=== PATIENT | female | born 1980 | race Caucasian/White ===

== ENCOUNTER → 2017-11-23 | Outpatient (CLI) | payer BC ==
[~2017-11-23] MED LIST: ALBUAER19 INH; BUPR-79 PO; IBUP-103 PO
[2017-11-23 12:39] LABS: BLOOD UREA NITROGEN 12 mg/dl (7-18); CALCIUM 8.9 mg/dl (8.5-10.1); CARBON DIOXIDE 26 mmol/L (21-32); CHOLESTEROL 220 mg/dl (0-200); CREATININE 0.92 mg/dl (0.60-1.20); GLUCOSE,FASTING 92 mg/dl (70-99); POTASSIUM 4.3 mmol/L (3.5-5.1); SODIUM 141 mmol/L (136-145)
[2017-11-23 12:49] LABS: LDL CHOLESTEROL CALCULATED 139 mg/dl
== END | disposition home or self-care (01) ==
LOC: C.LABPBG 10:17
PROVIDERS: ATTEND Family Medicine
DX: Z00.00 Encounter for general adult medical examination without abnormal findings (principal); R63.5 Abnormal weight gain

== ENCOUNTER 2018-12-29 05:58 | Observation (INO) ==
--- NOTE | 2018-12-26 10:50 | Anesthesiology Consultation ---
Date of Service December 26, 2018 Assessment & Plan (1) Encounter for pre-operative examination: Plan: - Check test AM DOS Chart Review Chart Review: Acceptable Risk for Surgery and Patient NOT seen in Pre Admission Testing History Surgery Operation Date: 12/29/18 07:45 Proposed Procedures p L5-S1 Laminectomy - Carlos Mccoy DO Height/Weight Height: 5 ft 4 in Weight: 90.718 kg Allergies Allergy/AdvReac Type Severity Reaction Status Date / Time amoxicillin Allergy Unknown HIVES, Verified 12/23/18 15:33 CHEST TIGHTNESS CAT ALLERGY Allergy Unknown DYSPNEA Uncoded 12/26/18 10:52 ENVIRONMENTAL ALLERGIES Allergy Unknown Uncoded 12/23/18 15:49 Medications Home Medications Medication Instructions Recorded Confirmed Last Taken albuterol sulfate 1 puff INHALATION Q6H PRN 12/23/18 12/23/18 Unknown baclofen 10 mg PO UD PRN 12/23/18 12/23/18 Unknown ibuprofen 600 mg PO UD PRN 12/23/18 12/23/18 Unknown Past Medical History Medical History Asthma Herniated disc REASON FOR SURGERY Obesity Past Family History Family History Father No problems noted. Grandfather Family history of lung cancer Mother Family history of breast cancer Past Surgical History Surgical History History of arthroscopy of right shoulder History of section X4 History of eye surgery LASIK EYE History of laparoscopic cholecystectomy History of right oophorectomy Nausea and vomiting after administration of anesthetic agent AFTER C/S Social History Smoking Status: Never smoker Do You Dip or Chew Tobacco: No Hx Alcohol Use: No Hx Substance Use: No substance use type: does not use Testing Electrocardiogram Date: 12/23/18 Findings: + NSR @ (73) Chest X-Ray Date: 12/23/18 Findings: + NAD Laboratory Results 12/23/18 WBC 8.74 H/H 14.0/41.8 PLATELETS 271 SODIUM 138 POTASSIUM 4.0 CHLORIDE 109 CO2 23 BUN 19 CREATININE 1.06 GLUCOSE 95 UA negative bacteria
[2018-12-29] MEDS ORDERED: ACETAMINOPHEN 500 MG TAB PO SCH (06:00)
[2018-12-29] MEDS ORDERED: GABAPENTIN 300 MG x 3 PO SCH (06:00)
[2018-12-29] MEDS ORDERED: LR 15ML/HR IV SCH (06:00)
[2018-12-29] MEDS ORDERED: CeleBREX 200 MG CAP PO SCH (06:00)
[2018-12-29] MEDS ORDERED: VANCOMYCIN HCL 1,500 MG in SODIUM CHLORIDE 0.9% 500 ML IV SCH (06:00)
[2018-12-29] MEDS ORDERED: fentaNYL citrate 100 MCG/2 ML VIAL ONE ×5 (06:35→08:43)
[2018-12-29] MEDS ORDERED: HYDROmorphone INJ 2 MG/ML SYR/VIAL ONE (06:35)
[2018-12-29] MEDS ORDERED: MIDAZOLAM HCL 1 MG/ML 2ML VIAL ONE (06:35)
[2018-12-29] MEDS ORDERED: PROPOFOL IV EMULSION 10 MG/ML 20 ML VIAL IV ONE ×2 (06:37→08:26)
[2018-12-29] MEDS ORDERED: GLYCOPYRROLATE 0.2 MG/ML VIAL ONE (06:37)
[2018-12-29] MEDS ORDERED: ROCURONIUM BROMIDE 10 MG/ML 5 ML VIAL ONE (06:37)
[2018-12-29] MEDS ORDERED: ONDANSETRON INJ 2 MG/ML 2 ML VIAL ONE ×2 (06:37→08:22)
[2018-12-29] MEDS ORDERED: LIDOCAINE HCL 2% 2 ML VIAL/AMP(20MG/ML) INFIL ONE (06:37)
[2018-12-29] MEDS ORDERED: DEXAMETHASONE SOD INJ 4 MG/ML VIAL ONE (06:37)
[2018-12-29] MEDS ORDERED: NEOSTIGMINE METHYLSULFATE 1 MG/ML 10ML VIAL ONE (06:37)
[2018-12-29] MEDS ORDERED: SCOPOLAMINE 1.5 MG TDSY ONE (07:01)
[2018-12-29] MEDS ORDERED: SCOPOLAMINE 1.5 MG TDSY TD SCH (07:15)
--- NOTE | 2018-12-29 07:31 | History & Physical Bridge Note ---
Date of Service December 29, 2018 History & Physical Bridge Note I have examined the patient, reviewed the History & Physical and in the interval since the performance of the History & Physical I have noted the following changes of clinical significance: no changes noted
--- NOTE | 2018-12-29 07:32 | History & Physical Report ---
Date of Service December 29, 2018 Assessment & Plan (1) Lumbar disc herniation with radiculopathy: L5-S1 laminectomy on the left Present on Admission?: Yes History of Present Illness Chief Complaint: Back and leg pain Primary Care Provider: NO PCP This is a 38-year-old female with worsening back and left leg pain. After failing extensive course of nonoperative care is here for surgical intervention. Allergies Allergy/AdvReac Type Severity Reaction Status Date / Time amoxicillin Allergy Unknown HIVES, Verified 12/23/18 15:33 CHEST TIGHTNESS CAT ALLERGY Allergy Unknown DYSPNEA Uncoded 12/26/18 10:52 ENVIRONMENTAL ALLERGIES Allergy Unknown Uncoded 12/23/18 15:49 Home Medications Home Medications Medication Instructions Recorded Confirmed Type albuterol sulfate 1 puff INHALATION Q6H PRN 12/23/18 12/29/18 History baclofen 10 mg PO UD PRN 12/23/18 12/29/18 History ibuprofen 600 mg PO UD PRN 12/23/18 12/29/18 History Past Med/Surg History Family History Father No problems noted. Grandfather Family history of lung cancer Mother Family history of breast cancer Social History Current Living Situation: Family Other Information That Helps Us Care for You: No Feels Safe at Home: Yes Smoking Status: Never smoker Do You Dip or Chew Tobacco: No Hx Alcohol Use: No Hx Substance Use: No Beliefs That Will Affect Care: None Preferred Language: [place] Communication Ability: Effective Canvass Manager Required: No Physical Exam 2 Vital Signs (Past 24 Hours): Last Vital Signs Temp 36.7 C 12/29/18 06:44 Pulse 75 12/29/18 06:44 Resp 20 12/29/18 06:44 BP 118/68 12/29/18 06:44 Pulse Ox 98 12/29/18 06:44 Results & Data Medications Administered Acetaminophen (Tylenol) 1,000 mg PO PREOP ELYSSA Stop: 12/29/18 18:00 Last Admin: 12/29/18 06:55 Dose: 1,000 mg Celecoxib (Celebrex) 200 mg PO PREOP ELYSSA Stop: 12/29/18 18:00 Last Admin: 12/29/18 06:55 Dose: 200 mg Gabapentin (Neurontin) 900 mg PO PREOP ELYSSA Stop: 12/29/18 18:00 Last Admin: 12/29/18 06:55 Dose: 900 mg Lactated Ringer's (Lr) 1,000 mls @ 15 mls/hr IV .Q24H ELYSSA Stop: 12/30/18 05:59 Last Admin: 12/29/18 06:42 Dose: 15 mls/hr Vancomycin HCl 1,500 mg/ (Sodium Chloride) 530 mls @ 200 mls/hr IV PREOP ELYSSA Stop: 12/29/18 08:38 Last Admin: 12/29/18 06:42 Dose: 200 mls/hr Scopolamine (Transderm-Scop) 1.5 mg TD Q72H ELYSSA Stop: 01/28/19 07:14 Last Admin: 12/29/18 07:04 Dose: 1.5 mg
[2018-12-29] MEDS ORDERED: BUPIVACAINE/EPINEPHRINE 0.5% MPF 1:200,000 30 ML VIAL ONE (07:41)
[2018-12-29] MEDS ORDERED: BACITRACIN INJ 50,000 UNIT VIAL ONE (07:41)
[2018-12-29] MEDS ORDERED: CHECK SCOPOLAMINE PATCH PLACEMENT SCH (08:00)
[2018-12-29] MEDS ORDERED: FLOSEAL HEMOSTATIC MATRIX 5ML TOP ONE (08:06)
[2018-12-29] MEDS ORDERED: KETOROLAC 30 MG/ML VIAL ONE (08:22)
[2018-12-29] MEDS ORDERED: LARYING-O-JET KIT (LTA) ONE (08:22)
[2018-12-29] MEDS ORDERED: METOCLOPRAMIDE HCL INJ 5 MG/ML 2 ML VIAL ONE (08:22)
[2018-12-29] MEDS ORDERED: raNITIdine HCl 25 MG/ML VIAL ONE (08:22)
--- NOTE | 2018-12-29 08:48 | Operative Report ---
Post Operative Report Pre & Post Diagnosis Operation Date: 12/29/18 07:45 Pre-Op Diagnosis: Herniated was pulposis L5-S1 the left Post-Op Diagnosis: Same Procedure Operation Date: 12/29/18 07:45 Actual Procedures Lumbar laminotomy L5-S1 left with excision of herniated free fragment Surgeon Carlos Mccoy, Medical Record Librarian None Estimated Blood Loss 10 Findings Consistent with Post-Op Diagnosis Specimens None Description of Procedure Patient was met with preoperatively case discussed all questions addressed. After informed consent obtained patient was taken to the operative suite underwent intubation and placed in the prone position on the Isael table on top of the Hira frame. All bony prominences well-padded eyes inspected to ensure no external pressure placed upon the peer at this point the lumbar spine was prepped and draped in a sterile fashion. With the assistance of fluoroscopy identified the 5 1 to space and a small midline incision was created overlying this region. Sharp dissection with the assistance of Bovie cautery was performed down to expose the interlaminar space at L5-S1 left. Self -retaining retractors placed. Then created a small laminotomy excising the lateral portion of the ligamentum flavum to expose a markedly compress traversing S1 nerve root. It was mobilized medially and several large fragments of free disc material identified and removed creating significant decompression of the root. There was explored several times to ensure all loose fragments addressed. Was then copious irrigated and closed with 1 Vicryl in the fascia 2-0 Vicryl subcutaneously and 4-0 Monocryl for final skin closure Steri-Strip sterile dressings placed. Patient will continue to PACU stable condition. I attest to the content of the Intraoperative Record and any orders documented therein. Any exceptions are noted below.
--- NOTE | 2018-12-29 09:41 | Fluoroscopy Report ---
FL spine 1V any level CLINICAL HISTORY: 38 years-old Female presenting with L5-S1 LAMI. TECHNIQUE: 1 fluoroscopic image(s) recorded as part of an intraoperative procedure. COMPARISON: None. FINDINGS/IMPRESSION: Surgical instrumentation projects over the L5-S1 level. Please see surgical report for further details. Fluoroscopy dosage (mGy): 3.54. Fluoroscopy time: 4.2 seconds. Number or time of fluoroscopic spot images: 0. Electronically signed by: Syed Meyer M.D. 12/29/2018 9:40 AM
--- NOTE | 2018-12-29 10:13 | Anesthesiology Progress Note ---
Date of Service December 29, 2018 Anesthesia Post Procedure Vital Signs Vital Signs: Temp Pulse Pulse Pulse Resp BP BP 12/29/18 10:00 56 L 12 114/68 12/29/18 09:55 67 20 118/70 12/29/18 09:50 55 L 16 116/69 12/29/18 09:45 57 L 15 116/67 12/29/18 09:40 53 L 16 111/68 12/29/18 09:35 58 L 14 12/29/18 09:30 59 L 13 116/67 12/29/18 09:25 58 L 17 115/67 12/29/18 09:20 72 20 120/72 12/29/18 09:15 69 15 117/67 12/29/18 09:10 74 13 123/66 12/29/18 09:08 70 13 12/29/18 09:07 71 14 117/65 12/29/18 09:06 97.7 F 74 10 L 117/68 12/29/18 06:44 98.1 F 75 20 118/68 Pulse Ox 12/29/18 10:00 100 12/29/18 09:55 100 12/29/18 09:50 100 12/29/18 09:45 100 12/29/18 09:40 100 12/29/18 09:35 100 12/29/18 09:30 100 12/29/18 09:25 100 12/29/18 09:20 100 12/29/18 09:15 100 12/29/18 09:10 100 12/29/18 09:08 100 12/29/18 09:07 100 12/29/18 09:06 99 12/29/18 06:44 98 Pain Intensity Left Lower Leg: Pain Intensity: 6 Notes Mental Status: alert / awake / arousable and participated in evaluation Patient Amnestic to Procedure: Yes Nausea / Vomiting: adequately controlled Pain: adequately controlled Airway Patency, RR, SpO2: stable & adequate BP & HR: stable & adequate Hydration State: stable & adequate Anesthetic Complications: no major complications apparent and Pt Satisfied with anesthetic care
[2018-12-29] MEDS ORDERED: ePHEDrine sulfate 50 MG/ML AMP IV PRN (10:55)
[2018-12-29] MEDS ORDERED: ATROPINE SULFATE 0.1 MG/ML 10ML SYR IV PRN (10:55)
[2018-12-29] MEDS ORDERED: fentaNYL citrate 100 MCG/2 ML VIAL IV PRN (10:55)
[2018-12-29] MEDS ORDERED: HYDROmorphone INJ 1 MG/ML SYRINGE IV PRN (11:17)
[2018-12-29] MEDS ORDERED: DO NOT ADMINISTER FLU VACCINE PRN (11:17)
[2018-12-29] MEDS ORDERED: LORazepam 1 MG/2 ML VIAL IV PRN (11:17)
[2018-12-29] MEDS ORDERED: MAGNESIUM HYDROXIDE SUSP 30 ML UDC PO PRN (11:17)
[2018-12-29] MEDS ORDERED: ACETAMINOPHEN 325 MG TAB PO PRN (11:17)
[2018-12-29] MEDS ORDERED: DO NOT ADMINISTER PNEUMOCOCCAL VACCINE PRN (11:17)
[2018-12-29] MEDS ORDERED: LORazepam 1 MG TAB PO PRN (11:17)
[2018-12-29] MEDS ORDERED: ONDANSETRON INJ 2 MG/ML 2 ML VIAL IV PRN (11:17)
[2018-12-29] MEDS ORDERED: ALBUTEROL HFA 8 GM INHALER INH PRN (11:17)
[2018-12-29] MEDS: DOCUSATE SODIUM 100 MG CAP PO SCH ×2 (12:02→20:52)
[2018-12-29] MEDS: LACTATED RINGER'S 1,000 ML IV SCH (12:02)
[2018-12-29] MEDS: KETOROLAC 30 MG/ML VIAL IV PRN (16:24)
[2018-12-30] MEDS: LACTATED RINGER'S 1,000 ML IV SCH (00:02)
[2018-12-30] MEDS: KETOROLAC 30 MG/ML VIAL IV PRN (04:11)
--- NOTE | 2018-12-30 08:43 | Anesthesiology Progress Note ---
Date of Service December 30, 2018 Anesthesia Post Procedure Vital Signs Vital Signs: Temp Pulse Pulse Pulse Resp BP BP 12/30/18 07:08 37.4 C 65 16 109/70 12/30/18 03:27 36.6 C 71 16 12/30/18 01:56 65 12/29/18 23:11 37.1 C 57 L 16 12/29/18 19:31 37.6 C H 68 18 12/29/18 15:55 37.6 C H 66 18 12/29/18 14:34 65 18 12/29/18 13:14 89 18 12/29/18 11:55 67 18 12/29/18 11:33 36.3 C L 59 L 16 12/29/18 11:04 36.7 C 67 16 12/29/18 10:35 66 22 12/29/18 10:30 57 L 15 121/70 12/29/18 10:25 60 14 118/72 12/29/18 10:20 60 17 115/71 12/29/18 10:15 58 L 12 116/72 12/29/18 10:11 68 18 100/70 12/29/18 10:10 57 L 10 L 12/29/18 10:05 53 L 19 113/69 12/29/18 10:00 56 L 12 114/68 12/29/18 09:55 67 20 118/70 12/29/18 09:50 55 L 16 116/69 12/29/18 09:45 57 L 15 116/67 12/29/18 09:40 53 L 16 111/68 12/29/18 09:35 58 L 14 12/29/18 09:30 59 L 13 116/67 12/29/18 09:25 58 L 17 115/67 12/29/18 09:20 72 20 120/72 12/29/18 09:15 69 15 117/67 12/29/18 09:10 74 13 123/66 12/29/18 09:08 70 13 12/29/18 09:07 71 14 117/65 12/29/18 09:06 36.5 C 74 10 L BP Pulse Ox 12/30/18 07:08 109/70 97 12/30/18 03:27 98/61 L 98 12/30/18 01:56 12/29/18 23:11 94/60 L 96 12/29/18 19:31 97/59 L 95 12/29/18 15:55 96/63 L 96 12/29/18 14:34 118/74 98 12/29/18 13:14 111/74 97 12/29/18 11:55 110/74 96 12/29/18 11:33 117/77 99 12/29/18 11:04 115/74 98 12/29/18 10:35 100 12/29/18 10:30 100 12/29/18 10:25 100 12/29/18 10:20 100 12/29/18 10:15 100 12/29/18 10:11 100 12/29/18 10:10 100 12/29/18 10:05 100 12/29/18 10:00 100 12/29/18 09:55 100 12/29/18 09:50 100 12/29/18 09:45 100 12/29/18 09:40 100 12/29/18 09:35 100 12/29/18 09:30 100 12/29/18 09:25 100 12/29/18 09:20 100 12/29/18 09:15 100 12/29/18 09:10 100 12/29/18 09:08 100 12/29/18 09:07 100 12/29/18 09:06 117/68 99 Pain Intensity Left Lower Leg: Pain Intensity: 0 Notes Mental Status: alert / awake / arousable and participated in evaluation Patient Amnestic to Procedure: Yes Nausea / Vomiting: adequately controlled Pain: adequately controlled Airway Patency, RR, SpO2: stable & adequate BP & HR: stable & adequate Hydration State: stable & adequate Anesthetic Complications: no major complications apparent and Pt Satisfied with anesthetic care
[2018-12-30] MEDS: DOCUSATE SODIUM 100 MG CAP PO SCH (09:07)
--- NOTE | 2018-12-30 10:06 | Discharge Summary ---
Date of Service December 30, 2018 Admission HPI Per Admitting Provider This is a 38-year-old female with worsening back and left leg pain. After failing extensive course of nonoperative care is here for surgical intervention. Principal Diagnosis Lumbar disc herniation with radiculopathy Discharge Data Allergies Allergy/AdvReac Type Severity Reaction Status Date / Time amoxicillin Allergy Unknown HIVES, Verified 12/23/18 15:33 CHEST TIGHTNESS CAT ALLERGY Allergy Unknown DYSPNEA Uncoded 12/26/18 10:52 ENVIRONMENTAL ALLERGIES Allergy Unknown Uncoded 12/23/18 15:49 Procedures Performed Operation Date: 12/29/18 07:45 Actual Procedures p L5-S1 Laminectomy - Carlos Mccoy DO Ordered Studies 12/29/18 07:45 FL fluoroscopy <1hr Routine FL spine 1V any level Routine Hospital Course (1) Lumbar disc herniation with radiculopathy: Patient underwent lumbar laminotomy partial discectomy tolerated as well as taken to orthopedic floor postoperative. Next day her pain is well controlled. She is only taking Tylenol and ibuprofen. Leg symptoms improved. Subsequently discharged home. Discharge orders and instructions found in the chart for further review. Total Time Total Time Spent Total Time Spent (In Minutes): Not applicable Discharge Plan Discharge Items Patient Disposition: Home - Self-Care Reason For Visit: Other Intervertebral Disc Displacement, Lumbar Reg Discharge Diagnosis: Lumbar disc herniation Discharge Goals: Decrease discomfort Activity: Per 'Additional Instructions' section Non-emergency contact: Primary Care Provider Call non-emergency contact if: you have any medication questions Follow-up/Referrals: PCP,NO [Primary Care Provider] - Diet: Regular Addtl Provider Instructions: ACTIVITY RECOMMENDATIONS: SELF CARE INSTRUCTIONS AFTER A LAMINECTOMY 1. No prolonged sitting (less than 30 minutes for the first 3 weeks after surgery). 2. No bending, lifting more than 5 pounds, or twisting (roll like a log when turning in bed). 3. You may shower 3 days after surgery if no drainage from wound. Thoroughly dry wound. Do not soak in the tub. 4. Please walk as much as you can for exercise. Gradually increase the distance that you walk as your endurance increases. 5. You may drive in 7-10 days if you are comfortable and no longer requiring pain medications. SPECIAL CARE INSTRUCTIONS: VERY IMPORTANT TO READ AND REVIEW A. Your surgical incision has been closed with a cosmetic suture under the skin that will dissolve in about 6 weeks. In 14 days, you can use a pair of clean scissors and cut the suture that is left outside of the skin at the ends of your incision. B. Complications are uncommon, but please contact us if you have any signs or symptoms of: 1. wound infection (fever higher than 102.5 degrees F, redness, separation of wound, drainage, or increasing pain from the incision) 2. blood clots in legs (pain, swelling, redness and warmth in legs) 3. urinary tract infection (fever higher than 102.5 degrees, burning upon urination or increased frequency of urination) 4. nerve problems (inability to walk on your toes or heels, numbness, loss of bowel or bladder control) 5. any other symptoms that concern you. C. Please call the office at if you have any concerns or questions about your operation or recovery. MANAGING PAIN AFTER SPINAL SURGERY 1. Narcotic medication is intended for short-term use and will be provided for surgical pain. Surgical pain usually lasts for a period of 4-6 weeks. Narcotic medication includes Percocet, Vicodin, Darvocet, Tylenol #3 or Lortab. 2. Longer-term pain is more appropriately treated with non-narcotic medication such as Tylenol ES. 3. Muscle spasm is not appropriately treated with narcotics. Muscle relaxers such as Soma, Flexeril or Skelaxin can be used along with Tylenol ES. 4. Remember that we all live with some "aches and pains". This is not unusual or uncommon after an injury or as we get older. 5. We will provide appropriate medication within the normal guidelines of their prescribed use. We will also be very cautious and aware of potential abuse and extended duration of patients' medication needs. 6. Please allow 2-3 days to process refills. Prescriptions will not be mailed but must be picked up at the office. FOLLOW UP VISIT: Keep your scheduled follow-up appointment. Any questions, please call the office at . Prescriptions: Continue baclofen 10 mg Tablet 10 mg PO UD PRN (Reason: Muscle Spasm) RF: 0 ibuprofen 600 mg Tablet 600 mg PO UD PRN (Reason: Pain) RF: 0 albuterol sulfate 90 mcg/actuation Hfa Aerosol Inhaler 1 puff INHALATION Q6H PRN (Reason: CAT ALLERGY) RF: 0 Stand-Alone Forms: [facility], [facility] Discharge Orders: Discharge Order (Routine); Ordered 12/30/18 Ordered By: Carlos Mccoy Admission Data Admit Date/Time: 12/29/18 11:06 Attending Provider: Carlos Mccoy Admit Provider: Carlos Mccoy Primary Care Provider: PCP,NO Service: Surgical Services Other Interventions: Discharge Summary Assessment (RN) Last Done: 12/30/18 09:48
[2018-12-31] MEDS ORDERED: BISACODYL 5 MG TABEC PO PRN (06:00)
[2018-12-31] MEDS ORDERED: POLYETHYLENE (MIRALAX) 17 GM PACK PO SCH (08:49)
== END 2018-12-30 10:44 | disposition home or self-care (01) | DRG 517 ==
LOC: ASU 05:58 → INTOOBSV 11:06 → 3E 11:06

== ENCOUNTER 2019-01-04 08:36 | Inpatient (IN) ==
[2019-01-04] MEDS ORDERED: ACETAMINOPHEN 500 MG TAB PO STA (10:08)
[2019-01-04] MEDS ORDERED: KETOROLAC TROMETHAMINE 60 MG/2 ML VIAL IM STA (10:08)
[2019-01-04] MEDS ORDERED: DEXAMETHASONE **PF** INJ 10 MG/ML VIAL IM ONE (10:08)
[2019-01-04] MEDS ORDERED: OXYCODONE HCL IR 5 MG TAB (IMMEDIATE RELEASE) PO STA (10:08)
[2019-01-04] MEDS ORDERED: SODIUM CHLORIDE 0.9% 1000ML 1,000 ML IV ONE (10:19)
[2019-01-04] MEDS ORDERED: GADOBUTROL 65ML VIAL IV PRN (11:43)
--- NOTE | 2019-01-04 14:04 | Magnetic Resonance Report ---
MR lumbar spine wo/w con CLINICAL HISTORY: 38 years-old Female with acute lumbar pain POD 6 laminectomy. Acute low back pain with prior lumbar spine surgery. Patient reports prior laminectomy 6 days prior. COMPARISON: Fluoroscopic images of the lumbar spine 12/29/2018 TECHNIQUE: Multiplanar, multi sequence MRI of the lumbar spine was performed both with and without th e use of 9 mL Gadavist FINDINGS: Job Honer localizer images demonstrate no gross abnormality of the abdomen, pelvis or paraspinal structur es. T2 hyperintense 2.7 cm structure of the left adnexum is suggestive of an ovarian follicle. No aor tic aneurysm or adenopathy. No acute fracture or subluxation. Conus medullaris terminates at L1. Sign al within the thoracic spinal cord appears unremarkable. T12-L1: No central canal or neural foraminal stenosis. L1-L2: No central canal or neural foraminal stenosis. L2-L3: Small central disc protrusion flattens the ventral thecal sac. No significant central canal o r foraminal narrowing. L3-L4: Mild disc desiccation with small circumferential annular disc bulge, central annular fissure with small disc protrusion. Additionally, there is mild facet arthrosis with ligamentum flavum thicke christal. Flattening of the ventral thecal sac without significant central canal stenosis. There is mild inferior left foraminal stenosis. The right foramen is patent. L4-L5: Mild disc desiccation with mild intervertebral disc space narrowing. Small circumferential an nular disc bulge with central annular fissure. No significant central canal or foraminal narrowing. L5-S1: Mild intervertebral disc space narrowing with disc desiccation. Small circumferential annular disc bulge with central/left paracentral disc protrusion flattening the ventral thecal sac. Mild lef t foraminal stenosis. The right foramen appears generally patent. Postoperative changes from recent left hemilaminectomy at S1. Peripheral enhancement about a 2.3 x 1. 9 x 1.6 cm fluid collection within this distribution is noted. Moderate edema within the subcutaneous and deep tissues with micrometallic artifact, likely postsurgical. There is moderate enlargement, ed josef and enhancement about the left S1 nerve root, partially imaged on image 30 series 7. Additionally , there is mass effect and rightward displacement of the thecal sac at this level secondary to the af orementioned findings. Moderate central canal stenosis. Additionally, there is enhancement involving multiple cauda equina nerve roots. IMPRESSION: 1. Postoperative changes from recent left hemilaminectomy at S1. Peripherally enhancing fluid collect ion at the operative bed measures up to 2.3 cm. Postoperative seroma is favored with abscess also wit hin the differential. There is resultant moderate central canal stenosis at this interspace. 2. Moderate enlargement with edema and enhancement of the left S1 nerve root, suggestive of an associ ated infectious or inflammatory neuritis. 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 3. No large epidural fluid collection. 4. Discogenic degenerative changes at L3-L4, L4-L5 and L5-S1 as above. The above report was generated using voice recognition software. It may contain grammatical, syntax o r spelling errors. Electronically signed by: Kayden James M.D. 01/04/2019 2:03 PM
[2019-01-04] MEDS ORDERED: ONDANSETRON INJ 2 MG/ML 2 ML VIAL IV PRN (15:11)
[2019-01-04] MEDS ORDERED: LORazepam 1 MG TAB PO PRN (15:11)
[2019-01-04] MEDS ORDERED: HYDROmorphone INJ 1 MG/ML SYRINGE IV PRN (15:16)
[2019-01-04] MEDS ORDERED: ACETAMINOPHEN 500 MG TAB PO PRN (15:17)
[2019-01-04] MEDS ORDERED: ALBUTEROL HFA 8 GM INHALER INH PRN (15:17)
--- NOTE | 2019-01-04 15:27 | History & Physical Report ---
Date of Service January 04, 2019 Assessment & Plan (1) Lumbar disc herniation with radiculopathy: Pt is being admitted to Dr. Mccoy's service due to possible recurrent disc herniation and pain control. We have discussed proceeding with surgical intervention within the next day or two to address new issue (recurrent disc herniation, less likely infection). Procedure would involve revision decompression and fusion L5-S1. Risks, benefits, pros, cons, alternatives have been reviewed with pt and . History of Present Illness Primary Care Provider: Bhavana Cohen DO This is a 38yo female well known to our practice, She is POD#6 lumbar laminectomy L5-S1 left. Her pain was completely resolved for five days post op. Yesterday morning she got out of bed and had severe LEFT leg pain-same pattern as pre-op. Sitting is extremely uncomfortable for her. Weight bearing is also difficult. Denies fevers/chills. She notes numbness lateral two toes on left- established. Denies bowel/bladder dysfunction. Allergies Allergy/AdvReac Type Severity Reaction Status Date / Time amoxicillin Allergy Unknown HIVES, Verified 01/04/19 09:52 CHEST TIGHTNESS CAT ALLERGY Allergy Unknown DYSPNEA Uncoded 01/04/19 09:52 ENVIRONMENTAL ALLERGIES Allergy Unknown Unknown Uncoded 01/04/19 09:52 Home Medications Home Medications Medication Instructions Recorded Confirmed Type albuterol sulfate 1 puff INHALATION Q6H PRN 12/23/18 01/04/19 History ibuprofen 600 mg PO UD PRN 12/23/18 01/04/19 History acetaminophen [Tylenol Extra 500 mg PO UD PRN 01/04/19 01/04/19 History Strength] Past Med/Surg History Medical History Asthma Herniated disc REASON FOR SURGERY Obesity Surgical History History of arthroscopy of right shoulder History of section X4 History of eye surgery LASIK EYE History of laparoscopic cholecystectomy History of right oophorectomy Nausea and vomiting after administration of anesthetic agent AFTER C/S Family History Father No problems noted. Grandfather Family history of lung cancer Mother Family history of breast cancer Social History Communication Ability: Effective Quantity Surveyor Required: No Beliefs That Will Affect Care: None Current Living Situation: Spouse Other Information That Helps Us Care for You: No Feels Safe at Home: Yes Safety Concerns: Feels Safe At This Time Smoking Status: Never smoker Hx Alcohol Use: No Hx Substance Use: No Review of Systems back pain, left radicular pain numbness left lateral foot Physical Exam Vital Signs (Past 24 Hours): Last Vital Signs Temp 36.8 C 01/04/19 08:50 Pulse 70 01/04/19 14:00 Resp 20 01/04/19 14:00 BP 129/80 01/04/19 14:00 Pulse Ox 99 01/04/19 14:00 Physical Exam: seen in C10 in ED. Presents with at bedside. Obviously uncomfortable. Alert and oriented x 3 Constitutional: WD/WN, vitals as above Eyes: normal visual flores by confrontation ENMT: external ear and nose normal, oropharynx normal Respiratory: normal respiratory effort Cardiovascular: Rate/Rhythm: regular rate Extremities: normal capillary refill Gastrointestinal (Abdomen): Inspection/Auscultation: abdomen normal to inspection Musculoskeletal: lumbar incision benighn. No edema, eccymosis, erythema,purulent drainage. Lower extremities: calves soft and nontender b/l. + straight leg raise left. 5/5 b/l strength lower extremities Skin: no rashes, warm and dry Neurologic: patellar DTR's 2+ bilat, sensation intact Psychiatric: A+Ox3, euthymic affect Eye Contact: good eye contact Results & Data Diagnostic Findings Patient: KELLY OQUENDO TAdmit Date: 01/04/19 MR#: [id number]: [address] [place] [address] [employer] [facility] Acct ID:[id number]: Date: 1980[facility] Zip: [place] [address] Age: 38Location: ED Sex: F Room/Bed: Att Phy: Diagnosis: LOWER BACK AND LT LEG PAIN S/P SURGERY 12/29 Theresa Phy: Bhavana Cohen, DOService Date: 01/04/19 Fam Phy: Interpreting Phy: Mohit James Admit Phy: Ordering Phy: Cross, Bipin E., M.D. cc: ~ MR lumbar spine wo/w con CLINICAL HISTORY: 38 years-old Female with acute lumbar pain POD 6 laminectomy. Acute low back pain with prior lumbar spine surgery. Patient reports prior laminectomy 6 days prior. COMPARISON: Fluoroscopic images of the lumbar spine 12/29/2018 TECHNIQUE: Multiplanar, multi sequence MRI of the lumbar spine was performed both with and without the use of 9 mL Gadavist FINDINGS: Boiler Washer localizer images demonstrate no gross abnormality of the abdomen, pelvis or paraspinal structures. T2 hyperintense 2.7 cm structure of the left adnexum is suggestive of an ovarian follicle. No aortic aneurysm or adenopathy. No acute fracture or subluxation. Conus medullaris terminates at L1. Signal within the thoracic spinal cord appears unremarkable. T12-L1: No central canal or neural foraminal stenosis. L1-L2: No central canal or neural foraminal stenosis. L2-L3: Small central disc protrusion flattens the ventral thecal sac. No significant central canal or foraminal narrowing. L3-L4: Mild disc desiccation with small circumferential annular disc bulge, central annular fissure with small disc protrusion. Additionally, there is mild facet arthrosis with ligamentum flavum thickening. Flattening of the ventral thecal sac without significant central canal stenosis. There is mild inferior left foraminal stenosis. The right foramen is patent. L4-L5: Mild disc desiccation with mild intervertebral disc space narrowing. Small circumferential annular disc bulge with central annular fissure. No significant central canal or foraminal narrowing. L5-S1: Mild intervertebral disc space narrowing with disc desiccation. Small circumferential annular disc bulge with central/left paracentral disc protrusion flattening the ventral thecal sac. Mild left foraminal stenosis. The right foramen appears generally patent. Postoperative changes from recent left hemilaminectomy at S1. Peripheral enhancement about a 2.3 x 1.9 x 1.6 cm fluid collection within this distribution is noted. Moderate edema within the subcutaneous and deep tissues with micrometallic artifact, likely postsurgical. There is moderate enlargement, edema and enhancement about the left S1 nerve root, partially imaged on image 30 series 7. Additionally, there is mass effect and rightward displacement of the thecal sac at this level secondary to the aforementioned findings. Moderate central canal stenosis. Additionally, there is enhancement involving multiple cauda equina nerve roots. IMPRESSION: 1. Postoperative changes from recent left hemilaminectomy at S1. Peripherally enhancing fluid collection at the operative bed measures up to 2.3 cm. Postoperative seroma is favored with abscess also within the differential. There is resultant moderate central canal stenosis at this interspace. 2. Moderate enlargement with edema and enhancement of the left S1 nerve root, suggestive of an associated infectious or inflammatory neuritis. 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 3. No large epidural fluid collection. 4. Discogenic degenerative changes at L3-L4, L4-L5 and L5-S1 as above. The above report was generated using voice recognition software. It may contain grammatical, syntax or spelling errors. Electronically signed by: Kayden James M.D. 01/04/2019 2:03 PM Supervising Physician Co-Signing Physician Notes Dr. Carlos Mccoy
[2019-01-04] MEDS: OXYCODONE/ACETAMINOPHEN 5mg/325mg TAB PO PRN ×2 (16:42→21:19)
[2019-01-04 16:49] LABS: Basophils # (auto) 0.01 K/uL (0-0.2); Basophils % (auto) 0.1 %; Hematocrit (blood only) 42.1 % (37-47); Hemoglobin 14.3 g/dL (12.0-16.0); Immature Granulocytes # (auto) 0.06 K/uL (0.00-0.02); Immature Granulocytes % (auto) 0.6 %; Lymphocytes # (auto) 0.69 K/uL (1.2-3.4); Lymphocytes % (auto) 6.5 %; Mean Corpuscular Volume 92.5 fL (80-100); Monocytes # (auto) 0.04 K/uL (0.11-0.59); Monocytes % (auto) 0.4 %; Neutrophils # (auto) 9.84 K/uL (1.4-6.5); Neutrophils % (auto) 92.4 %; Platelet Count 285 K/uL (130-400); RDW Coefficient of Variation 13.2 % (11.5-14.5); RDW Standard Deviation 44.1 fL (36.4-46.3); Red Blood Count 4.55 M/uL (4.2-5.4); White Blood Count 10.64 K/uL (4.8-10.8)
[2019-01-04 17:08] LABS: Pregnancy Test, Serum Negative (Negative)
[2019-01-04 17:11] LABS: Albumin Level 3.5 gm/dl (3.4-5.0); BUN Creatinine Ratio 20.3 (10-20); Calcium 8.9 mg/dl (8.5-10.1); Creatinine Clr Calc Pharmacy 84.9 ml/min; Est GFR (African American) 85.4; Est GFR (Non-African American) 73.7; Potassium 3.8 mmol/L (3.5-5.1)
[2019-01-04 17:14] LABS: Albumin Globulin Ratio 0.9 (0.9-2); Bilirubin,Total 0.7 mg/dl (0.2-1); Globulin 3.8 gm/dl (2.5-4.0); Total Protein 7.3 gm/dl (6.4-8.2)
[2019-01-04] MEDS: LACTATED RINGER'S 1,000 ML IV SCH (18:06)
[2019-01-04] MEDS: dexAMETHasone 8 MG in SYRINGE 0 ML IV SCH (18:07)
--- NOTE | 2019-01-04 18:55 | Emergency Department Note ---
Entered by Karen Logan acting as a scribe for Bipin Black MD History of Present Illness General Chief complaint: Back Injury/Pain Stated complaint: LOWER BACK AND LT LEG PAIN S/P SURGERY 12/29 Time Seen by Provider: 01/04/19 09:42 Source: patient History of Present Illness Provider complaint: back pain Onset (ago): day(s) (yesterday) Location: back Radiation: extremity (left leg) Severity: severe Maximum Pain Intensity: 8 Quality: + other (pain) Associated symptoms: no fever/chills and no nausea/vomiting The patient is a 38 year old female who presents to the Emergency Room with complaints of back pain since yesterday. The patient states that she had back surgery done 6 days ago and states that she had L5 and S1 worked on. She states that she was feeling well until yesterday. The patient states that when she rolled over in bed yesterday she had severe pain in her tailbone and pain down her left leg. She states that she was unable to stand on her left leg yesterday secondary to the pain but states that she was able to stand today. She also reports that she felt "tight" and that it was difficult to breath. She states that she was not given pain medications and that she has just been taking Tylenol. The patient states that she did not take any Tylenol yesterday as it does not help to alleviate her pain much. She denies having fevers, chills, nausea, and vomiting. The patient states that she called Dr. Mccoy who referred her to the ED today. Home Medications Home Medications Medication Instructions Recorded Confirmed Type albuterol sulfate 1 puff INHALATION Q6H PRN 12/23/18 01/04/19 History ibuprofen 600 mg PO UD PRN 12/23/18 01/04/19 History acetaminophen [Tylenol Extra 500 mg PO UD PRN 01/04/19 01/04/19 History Strength] Allergies Allergy/AdvReac Type Severity Reaction Status Date / Time amoxicillin Allergy Unknown HIVES, Verified 01/04/19 09:52 CHEST TIGHTNESS CAT ALLERGY Allergy Unknown DYSPNEA Uncoded 01/04/19 09:52 ENVIRONMENTAL ALLERGIES Allergy Unknown Unknown Uncoded 01/04/19 09:52 Past Med/Surg History Medical History Asthma Herniated disc REASON FOR SURGERY Obesity Surgical History History of arthroscopy of right shoulder History of section X4 History of eye surgery LASIK EYE History of laparoscopic cholecystectomy History of right oophorectomy Nausea and vomiting after administration of anesthetic agent AFTER C/S Family History Father No problems noted. Grandfather Family history of lung cancer Mother Family history of breast cancer Social History Communication Ability: Effective Bus Monitor Required: No Beliefs That Will Affect Care: None Current Living Situation: Spouse Other Information That Helps Us Care for You: No Feels Safe at Home: Yes Safety Concerns: Feels Safe At This Time Smoking Status: Never smoker Hx Alcohol Use: No Hx Substance Use: No Review of Systems See HPI for pertinent positives & negatives. and A total of 10 systems reviewed and were otherwise negative Physical Exam Vital Signs Vital Signs - 24 hr 01/04/19 08:50 01/04/19 10:28 01/04/19 12:00 Temperature 36.8 C Temperature Source Oral Sepsis Recent Fever Within 48 Hours No Sepsis New/Unexplained Change in Mental Status No Sepsis Action Taken by Nursing No Action Required Pulse Rate 117 H Pulse Rate [Right Finger] 88 88 Pulse Rhythm [Right Finger] Regular Pulse Strength [Right Finger] Normal Respiratory Rate 20 16 20 Respiratory Effort / Characteristics Non-Labored Spontaneous Non-Labored Spontaneous Respiratory Depth Normal Respiratory Pattern Regular Blood Pressure 115/81 Blood Pressure [Right Arm] 107/64 122/77 Blood Pressure Mean 92 Blood Pressure Mean [Right Arm] 78 92 Blood Pressure Position [Right Arm] Lying Lying Pulse Oximetry 98 99 96 Oxygen Delivery Method Room Air Room Air Room Air 01/04/19 14:00 01/04/19 16:00 01/04/19 16:39 Temperature 36.9 C Temperature Source Oral Sepsis Recent Fever Within 48 Hours Sepsis New/Unexplained Change in Mental Status Sepsis Action Taken by Nursing Pulse Rate 70 Pulse Rate [Right Finger] 70 90 Pulse Rhythm [Right Finger] Regular Regular Pulse Strength [Right Finger] Normal Normal Respiratory Rate 20 20 20 Respiratory Effort / Characteristics Non-Labored Spontaneous Non-Labored Spontaneous Respiratory Depth Normal Normal Respiratory Pattern Regular Regular Blood Pressure 129/80 Blood Pressure [Right Arm] 129/80 112/70 Blood Pressure Mean Blood Pressure Mean [Right Arm] 96 84 Blood Pressure Position [Right Arm] Lying Lying Pulse Oximetry 99 99 96 Oxygen Delivery Method Room Air Room Air Room Air GENERAL: Awake, alert, uncomfortable-appearing, in no distress HENT: Normocephalic, atraumatic. Oropharynx unremarkable. EYES: Normal conjunctiva. Sclera non-icteric. NECK: Supple. No nuchal rigidity. FROM. No JVD. RESPIRATORY: Clear to auscultation. CARDIAC: Regular rate, normal rhythm. Extremities warm and well perfused. Pulses equal. ABDOMEN: Soft, non-distended. No tenderness to palpation. No rebound or g uarding. No masses. RECTAL: Deferred. MUSCULOSKELETAL: Chest examination reveals no tenderness. Lower lumbar incision site is c/d/i. No midline ttp. Mild left paraspinal ttp extending distally in sciatic distribution. There is no CVA tenderness to palpation. No joint edema. LOWER EXTREMITIES: Calves are equal size bilaterally and non-tender. No edema. No discoloration. NEURO: Normal sensorium. No sensory or motor deficits noted. 5/5 strength and SLIT x4 extremities. L5 intact bilaterally. SKIN: No rash or jaundice noted. Course 1004: Past medical records reviewed. The patient was evaluated in room C10, and a complete history and physical examination were performed. 1017: I discussed the patient's case with Dr. Mccoy who said to order an MRI. 1026: I updated the patient. 1444: I discussed the patient's case with Dr. Mccoy who said that he will see the patient shortly. 1530: The patient will be further evaluated by Dr. Mccoy and will be taken to the OR this week. 1535: The patient verbalized agreement and understanding of the treatment plan. Consultations Consultation #1: Dr. Mccoy Time: 10:17 Administered Medications Dexamethasone 8 mg/ Syringe 2 mls @ 1 mls/min IV Q8H ELYSSA Stop: 01/05/19 10:01 Last Admin: 01/04/19 18:07 Dose: 1 mls/min Documented by: [id number] Lactated Ringer's (Lr) 1,000 mls @ 50 mls/hr IV .Q20H ELYSSA Stop: 02/03/19 16:14 Last Admin: 01/04/19 18:06 Dose: 50 mls/hr Documented by: [id number] Oxycodone/Acetaminophen (Percocet 5mg/325mg) 1 - 2 tab PO Q4H PRN PRN Reason: moderate to severe pain Stop: 01/18/19 15:10 Last Admin: 01/04/19 16:42 Dose: 2 tab Documented by: [id number] Discontinued Medications Acetaminophen (Tylenol) 1,000 mg PO NOW STA Stop: 01/04/19 10:09 Last Admin: 01/04/19 10:24 Dose: 1,000 mg Documented by: [id number] Dexamethasone Sodium Phosphate (Decadron Pf) 10 mg IM NOW ONE Stop: 01/04/19 10:09 Last Admin: 01/04/19 10:23 Dose: 10 mg Documented by: [id number] Gadobutrol (Gadavist 65ml) 9 ml IV ONCE PRN PRN Reason: Interaction Checking Stop: 01/08/19 11:42 Last Admin: 01/04/19 11:43 Dose: 9 ml Documented by: [id number] Sodium Chloride (Nss 1000ml) 1,000 mls @ 999 mls/hr IV .Q1H1M ONE Stop: 01/04/19 11:19 Last Infusion: 01/04/19 13:42 Dose: 0 mls/hr Documented by: [id number] Admin: 01/04/19 12:25 Dose: 999 mls/hr Documented by: [id number] Ketorolac Tromethamine (Toradol) 60 mg IM NOW STA Stop: 01/04/19 10:09 Last Admin: 01/04/19 10:23 Dose: 60 mg Documented by: [id number] Oxycodone HCl (Roxicodone Immediate Rel) 10 mg PO NOW STA Stop: 01/04/19 10:09 Last Admin: 01/04/19 10:23 Dose: 10 mg Documented by: [id number] Medical Decision Making Differential Diagnosis Differential diagnosis: Etiologies such as muscular strain, fracture, metastatic disease, disc herniation, sciatica, epidural abscess, vertebral osteomyelitis, discitis, spinal epidural hematoma, cord compression, cauda equina/conus medullaris syndrome, aortic disease, infection, shingles, renal colic, gastrointestinal, ac resighini exacerbation of chronic back pain, as well as others were entertained. Medical Records Attestation: I reviewed the patient's medical records. Home Medications Current Medication List: was personally reviewed by me Laboratory Data Result diagrams: 01/04/19 16:31 01/04/19 16:31 Lab Results 01/04/19 01/04/19 01/04/19 Range/Units 16:31 16:31 16:31 WBC 10.64 (4.8-10.8) K/uL RBC 4.55 (4.2-5.4) M/uL Hgb 14.3 (12.0-16.0) g/dL Hct 42.1 (37-47) % MCV 92.5 (80-100) fL MCH 31.4 (25-34) pg MCHC 34.0 (32-36) g/dL RDW Std Deviation 44.1 (36.4-46.3) fL RDW Coeff of Julianne 13.2 (11.5-14.5) % Plt Count 285 (130-400) K/uL MPV 9.0 (7.4-10.4) fL Immature Gran % (Auto) 0.6 % Neut % (Auto) 92.4 % Lymph % (Auto) 6.5 % [place] % (Auto) 0.4 % Eos % (Auto) 0.0 % Baso % (Auto) 0.1 % Immature Gran # (Auto) 0.06 H (0.00-0.02) K/uL Neut # (Auto) 9.84 H (1.4-6.5) K/uL Lymph # (Auto) 0.69 L (1.2-3.4) K/uL [place] # (Auto) 0.04 L (0.11-0.59) K/uL Eos # (Auto) 0.00 (0-0.5) K/uL Baso # (Auto) 0.01 (0-0.2) K/uL Sodium 135 L (136-145) mmol/L Potassium 3.8 (3.5-5.1) mmol/L Chloride 104 (98-107) mmol/L Carbon Dioxide 21 (21-32) mmol/L Anion Gap 10.0 (3-11) BUN 20 H (7-18) mg/dl Creatinine 0.98 (0.6-1.2) mg/dl Est Cr Clr Drug Dosing 84.9 ml/min Est GFR ( Amer) 85.4 Est GFR (Non-Af Amer) 73.7 BUN/Creatinine Ratio 20.3 H (10-20) Glucose 188 H (70-99) mg/dl Calcium 8.9 (8.5-10.1) mg/dl Total Bilirubin 0.7 (0.2-1) mg/dl AST 109 H (15-37) U/L ALT 134 H (12-78) U/L Alkaline Phosphatase 101 (45-117) U/L Total Protein 7.3 (6.4-8.2) gm/dl Albumin 3.5 (3.4-5.0) gm/dl Globulin 3.8 (2.5-4.0) gm/dl Albumin/Globulin Ratio 0.9 (0.9-2) HCG, Qual Negative (Negative) Imaging Data Radiologist's Impression: Radiology results as stated below per my review and the radiologist's interpretation: MR lumbar spine wo/w con CLINICAL HISTORY: 38 years-old Female with acute lumbar pain POD 6 laminectomy. Acute low back pain with prior lumbar spine surgery. Patient reports prior laminectomy 6 days prior. COMPARISON: Fluoroscopic images of the lumbar spine 12/29/2018 TECHNIQUE: Multiplanar, multi sequence MRI of the lumbar spine was performed both with and without the use of 9 mL Gadavist FINDINGS: Internal Affairs Commander localizer images demonstrate no gross abnormality of the abdomen, pelvis or paraspinal structures. T2 hyperintense 2.7 cm structure of the left adnexum is suggestive of an ovarian follicle. No aortic aneurysm or adenopathy. No acute fracture or subluxation. Conus medullaris terminates at L1. Signal within the thoracic spinal cord appears unremarkable. T12-L1: No central canal or neural foraminal stenosis. L1-L2: No central canal or neural foraminal stenosis. L2-L3: Small central disc protrusion flattens the ventral thecal sac. No significant central canal or foraminal narrowing. L3-L4: Mild disc desiccation with small circumferential annular disc bulge, central annular fissure with small disc protrusion. Additionally, there is mild facet arthrosis with ligamentum flavum thickening. Flattening of the ventral thecal sac without significant central canal stenosis. There is mild inferior left foraminal stenosis. The right foramen is patent. L4-L5: Mild disc desiccation with mild intervertebral disc space narrowing. Small circumferential annular disc bulge with central annular fissure. No significant central canal or foraminal narrowing. L5-S1: Mild intervertebral disc space narrowing with disc desiccation. Small circumferential annular disc bulge with central/left paracentral disc protrusion flattening the ventral thecal sac. Mild left foraminal stenosis. The right foramen appears generally patent. Postoperative changes from recent left hemilaminectomy at S1. Peripheral enhancement about a 2.3 x 1.9 x 1.6 cm fluid collection within this distribution is noted. Moderate edema within the subcutaneous and deep tissues with micr ometallic artifact, likely postsurgical. There is moderate enlargement, edema and enhancement about the left S1 nerve root, partially imaged on image 30 series 7. Additionally, there is mass effect and rightward displacement of the thecal sac at this level secondary to the aforementioned findings. Moderate central canal stenosis. Additionally, there is enhancement involving multiple cauda equina nerve roots. IMPRESSION: 1. Postoperative changes from recent left hemilaminectomy at S1. Peripherally enhancing fluid collection at the operative bed measures up to 2.3 cm. Postoperative seroma is favored with abscess also within the differential. There is resultant moderate central canal stenosis at this interspace. 2. Moderate enlargement with edema and enhancement of the left S1 nerve root, suggestive of an associated infectious or inflammatory neuritis. 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 3. No large epidural fluid collection. 4. Discogenic degenerative changes at L3-L4, L4-L5 and L5-S1 as above. The above report was generated using voice recognition software. It may contain grammatical, syntax or spelling errors. Electronically signed by: Kayden James M.D. 01/04/2019 2:03 PM Blood Pressure Blood Pressure Findings: Normal blood pressure MDM Narrative The patient is a pleasant 38-year-old woman who presents emergency department with acute onset of lower back pain in the setting of having recent laminectomy on 12/[address] Mccoy per hpi. On arrival patient is uncomfortable but no acute distress, afebrile stable vital signs. On exam the patient's incision site is clean dry and intact. There is no midline tenderness however mild left paraspinal tenderness. She has 5/5 strength in SILT 4 extremities. L5 intact bilaterally. It was discussed with Dr. Mccoy, the patient's surgeon, rec ommended MRI with and without contrast. MRI subsequently demonstrating postoperative changes from recent hemilaminectomy with enhancing fluid collection of the operative bed of 2.3 cm most likely seroma with associated moderate central canal stenosis. Additionally there is moderate enlargement wit h edema of the left S1 nerve root as well as multiple cauda equina nerve roots that is associated with arachnoiditis. Given the patient has no leukocytosis and is afebrile findings less likely to represent infection and more likely to represent postoperative inflammation. Images and report were reviewed by Dr. Mccoy and suspicion is likely for reccurrence of the patient's disc herniation and less likely infection. Dr. Mccoy will admit for further management and likely OR. Subsquent labs and medications per admitting team. Patient agreeable with plan. Impression & Plan Lumbar disc herniation Discharge Plan Visit Data *Final* Discharge Date/Time: 01/04/19 16:00 Chief Complaint: Back Injury/Pain Stated Complaint: LOWER BACK AND LT LEG PAIN S/P SURGERY 12/29 ED Provider: Bipin Black Discharge Problem: Lumbar disc herniation Patient Disposition: Admitted As Inpatient Discharge Instructions Interventions: ED Discharge Assessment Last Done: 01/04/19 16:00 The scribe's documentation has been prepared under my direction and personally reviewed by me in its entirety. I confirm that the note above accurately reflects all work, treatment, procedures, and medical decision making performed by me.
[2019-01-05] MEDS: dexAMETHasone 8 MG in SYRINGE 0 ML IV SCH ×2 (01:23→09:01)
[2019-01-05] MEDS ORDERED: CLINDAMYCIN 600 MG/54 ML BAG IV SCH (06:00)
[2019-01-05] MEDS: OXYCODONE/ACETAMINOPHEN 5mg/325mg TAB PO PRN (09:00)
--- NOTE | 2019-01-05 11:29 | Orthopedic Progress Note ---
Date of Service January 05, 2019 Assessment & Plan (1) Lumbar disc herniation with radiculopathy: At this time the patient has evidence of a recurrent disc herniation at L5-S1 on the left however I cannot rule out the possibility of development of an abscess concluding to her acute radiculopathy and limitations. Subsequently like to perform urgent revision decompression and fusion exploration of the operative bed. Present on Admission?: Yes Subjective Patient has significant left leg pain. She has marked inability to ambulate comfortably. Physical Exam Vital Signs (Past 24 Hours): Last Vital Signs Temp 37.1 C 01/05/19 08:03 Pulse 91 H 01/05/19 08:03 Resp 14 01/05/19 08:03 BP 114/70 01/05/19 08:03 Pulse Ox 95 01/05/19 08:03 Physical Exam: On physical exam she is in obvious distress. She is significant tension signs with straight leg raising on the left with beginnings of sensory deficits on the left leg compared to the right.
--- NOTE | 2019-01-05 12:51 | Anesthesiology Consultation ---
Date of Service January 05, 2019 Assessment & Plan (1) Encounter for pre-operative examination: Chart Review Chart Review: Acceptable Risk for Surgery and Patient NOT seen in Pre Admission Testing Consults Requested none NPO Date Last Intake of Fluids: 01/05/19 Time Last Intake of Fluids: 09:00 Last Intake of Fluids Comment: few sips with am medications Date Last Intake of Solids: 01/04/19 Time Last Intake of Solids: 20:00 History Surgery Operation Date: 01/05/19 13:25 Proposed Procedures p L5-S1 Decompression and Fusion - Carlos Mccoy DO Height/Weight Height: 5 ft 4 in Weight: 89.1 kg Allergies Allergy/AdvReac Type Severity Reaction Status Date / Time amoxicillin Allergy Unknown HIVES, Verified 01/04/19 09:52 CHEST TIGHTNESS CAT ALLERGY Allergy Unknown DYSPNEA Uncoded 01/04/19 09:52 ENVIRONMENTAL ALLERGIES Allergy Unknown Unknown Uncoded 01/04/19 09:52 Medications Home Medications Medication Instructions Recorded Confirmed Last Taken albuterol sulfate 1 puff INHALATION Q6H PRN 12/23/18 01/04/19 Unknown ibuprofen 600 mg PO UD PRN 12/23/18 01/04/19 01/03/19 acetaminophen [Tylenol Extra 500 mg PO UD PRN 01/04/19 01/04/19 01/03/19 Strength] Active Medications Generic Name Dose Route Start Last Admin Trade Name Freq PRN Reason Stop Dose Admin Lactated Ringer's 1,000 mls @ 50 mls/hr 01/04/19 16:15 01/05/19 04:52 Lr IV 02/03/19 16:14 50 mls/hr .Q20H ELYSSA Infusion Lorazepam 1 mg 01/04/19 15:11 01/04/19 23:53 Ativan PO 02/03/19 15:10 1 mg Q6H PRN Administration Anxiety/spasms Oxycodone/Acetaminophen 1 - 2 tab 01/04/19 15:11 01/05/19 09:00 Percocet 5mg/325mg PO 01/18/19 15:10 2 tab Q4H PRN Administration moderate to severe pain Past Medical History Medical History Asthma Herniated disc REASON FOR SURGERY Obesity Past Family History Family History Father No problems noted. Grandfather Family history of lung cancer Mother Family history of breast cancer Past Surgical History Surgical History History of arthroscopy of right shoulder History of section X4 History of eye surgery LASIK EYE History of laparoscopic cholecystectomy History of right oophorectomy Nausea and vomiting after administration of anesthetic agent AFTER C/S Past Anesthesia History No Hx of Anesthesia Complications and No Family Hx of Anesthesia Complications History of PONV No Motion Sickness Screening History of Motion Sickness: No Social History Smoking Status: Never smoker Do You Dip or Chew Tobacco: No Hx Alcohol Use: No Hx Substance Use: No substance use type: does not use Exercise / Class Metabolic Activity II 4-5 Yardwork/Stairs/Walk up hill Physical Exam Vital Signs Last Vital Signs Temp 36.9 C 01/05/19 11:18 Pulse 77 01/05/19 11:18 Resp 16 01/05/19 11:18 BP 119/74 01/05/19 11:18 Pulse Ox 95 01/05/19 11:18 Testing Laboratory Results 01/04/19 16:31 01/04/19 16:31
[2019-01-05] MEDS ORDERED: MIDAZOLAM HCL 1 MG/ML 2ML VIAL ONE (12:54)
[2019-01-05] MEDS ORDERED: ROCURONIUM BROMIDE 10 MG/ML 5 ML VIAL ONE ×2 (12:54→14:19)
[2019-01-05] MEDS ORDERED: fentaNYL citrate 100 MCG/2 ML VIAL ONE ×2 (12:54→13:45)
[2019-01-05] MEDS ORDERED: PROPOFOL IV EMULSION 10 MG/ML 20 ML VIAL IV ONE (12:54)
[2019-01-05] MEDS ORDERED: LIDOCAINE HCL 2% 2 ML VIAL/AMP(20MG/ML) INFIL ONE (12:54)
[2019-01-05] MEDS ORDERED: GLYCOPYRROLATE 0.2 MG/ML VIAL ONE (12:54)
[2019-01-05] MEDS ORDERED: ONDANSETRON INJ 2 MG/ML 2 ML VIAL ONE (12:54)
[2019-01-05] MEDS ORDERED: NEOSTIGMINE METHYLSULFATE 1 MG/ML 10ML VIAL ONE (12:54)
[2019-01-05] MEDS ORDERED: SCOPOLAMINE 1.5 MG TDSY ONE (12:55)
[2019-01-05] MEDS ORDERED: ATROPINE SULFATE 0.1 MG/ML 10ML SYR IV PRN (12:56)
[2019-01-05] MEDS ORDERED: SCOPOLAMINE 1.5 MG TDSY TD STA (12:56)
[2019-01-05] MEDS ORDERED: ePHEDrine sulfate 50 MG/ML AMP IV PRN (12:56)
[2019-01-05] MEDS ORDERED: ONDANSETRON INJ 2 MG/ML 2 ML VIAL IV PRN ×2 (12:56→16:53)
--- NOTE | 2019-01-05 13:00 | History & Physical Bridge Note ---
Date of Service January 05, 2019 History & Physical Bridge Note I have examined the patient, reviewed the History & Physical and in the interval since the performance of the History & Physical I have noted the following changes of clinical significance: no changes noted
[2019-01-05] MEDS ORDERED: BUPIVACAINE/EPINEPHRINE 0.5% MPF 1:200,000 30 ML VIAL ONE (13:09)
[2019-01-05] MEDS ORDERED: BACITRACIN INJ 50,000 UNIT VIAL ONE (13:09)
[2019-01-05] MEDS ORDERED: DEXAMETHASONE SOD INJ 4 MG/ML VIAL ONE (13:48)
[2019-01-05] MEDS ORDERED: FLOSEAL HEMOSTATIC MATRIX 10ML TOP ONE (14:05)
--- NOTE | 2019-01-05 14:44 | Operative Report ---
Post Operative Report Pre & Post Diagnosis Operation Date: 01/05/19 13:25 Pre-Op Diagnosis: RECURRENT DISC HERNIATION Post-Op Diagnosis: RECURRENT DISC HERNIATION Procedure Operation Date: 01/05/19 13:25 Actual Procedures #1 revision decompression medial facetectomies foraminotomies L5-S1. #2 posterior spinal fusion L5-S1. #3 placement posterior instrumentation L5-S1. #4 interbody fusion L5-S1. #5 placement of titanium 10 x 22 mm cage L5-S1 per #6 placement of local autograft in the posterior lateral gutters. #7 placement Feese: Sponge, mass graft in the posterior gutters and ostial amp in the interbody space. Surgeon Carlos Mccoy, Purchasing Engineer Linda Villagomez Estimated Blood Loss 100 Findings Consistent with Post-Op Diagnosis Specimens None Description of Procedure Patient was met with preoperatively case discussed all questions addressed. After informed consent obtained patient was taken to the operative suite underwent intubation and placed in a prone position on the Isael table on top of the Hira frame. All bony prominences were well-padded eyes inspected to ensure no external pressure placed upon the. This point the lumbar spine was prepped and draped in normal sterile fashion. Utilizing his previous incision site sharp dissection with the assistance of Bovie cautery was performed down to and exposing the remaining lamina and transverse process of L5 and sacral ala bilaterally. I noted evidence of disc material that emanated from the laminotomy site or sitting dorsal to the roots. A complete laminectomy was then performed including medial facetectomies and foraminotomies on the left. Massive amount of disc material was identified wrapped around the S1 traversing root. After complete removal pedicle screws were placed in L5 and S1 levels bilaterally with assistance of fluoroscopy the purposes caryl placed. Through a transforaminal approach and left complete discectomy was performed in plate coated to subcortical bleeding bone and a 10 x 22 mm titanium cage filled with osteo-amp bone graft tamped into position. Rods were then compressed locked into final position bilaterally. The transverse process of L5 and sacral ala bur to subcortical B bone. Infuse collagen sponge mass graft local autograft placed in the posterior lateral gutters. 15 round HARRISON drain inserted. Incision was then closed with 1 Vicryl in the fascia 2-0 Vicryl subcutaneous and 4 Monocryl for final skin closure. Steri-Strip sterile dressings placed. Patient will continue PACU stable disc. Please note Linda Villagomez present at the entire procedure involved in patient positioning complex portions of the surgery and final skin closure. I attest to the content of the Intraoperative Record and any orders documented therein. Any exceptions are noted below.
--- NOTE | 2019-01-05 15:03 | Fluoroscopy Report ---
FL lumbar spine 2-3V CLINICAL HISTORY: L5-S1 DECOMPRESSION/FUSION COMPARISON STUDY: MRI dated 01/04/2019 FLUOROSCOPY TIME: 18 seconds. NUMBER OF FLUOROSCOPIC IMAGES: 2 FINDINGS: 2 intraoperative fluoroscopic spot images reveal postsurgical changes of an L5-S1 discectom y, interbody fusion, and posterior ankle screw fixation. IMPRESSION: Postsurgical changes of an L5-S1 spinal decompression and interbody fusion and posterior pedicle screw fixation Electronically signed by: Jensen Estevez M.D. 01/05/2019 3:02 PM
[2019-01-05] MEDS: fentaNYL citrate 100 MCG/2 ML VIAL IV PRN ×4 (15:20→15:35)
[2019-01-05] MEDS: HYDROmorphone INJ 1 MG/ML SYRINGE IV PRN ×5 (15:40→16:00)
[2019-01-05] MEDS ORDERED: CHECK SCOPOLAMINE PATCH PLACEMENT SCH (16:00)
--- NOTE | 2019-01-05 16:03 | Anesthesiology Progress Note ---
Date of Service January 05, 2019 Anesthesia Post Procedure Vital Signs Vital Signs: Temp Pulse Pulse Resp BP Pulse Ox 01/05/19 15:53 67 17 102/58 L 97 01/05/19 15:40 62 17 101/60 97 01/05/19 15:30 62 17 101/60 100 01/05/19 15:20 79 13 100/58 L 100 01/05/19 15:10 83 20 94/48 L 100 01/05/19 15:02 36.6 C 76 16 98/42 L 100 01/05/19 12:50 36.8 C 86 20 121/71 94 01/05/19 11:18 36.9 C 77 16 119/74 95 01/05/19 08:03 37.1 C 91 H 14 114/70 95 01/04/19 23:58 36.9 C 85 16 109/67 94 01/04/19 16:39 36.9 C 90 20 112/70 96 Pain Intensity Back: Pain Intensity: 6 Notes Mental Status: alert / awake / arousable Patient Amnestic to Procedure: Yes Nausea / Vomiting: adequately controlled Pain: adequately controlled Airway Patency, RR, SpO2: stable & adequate BP & HR: stable & adequate Hydration State: stable & adequate Anesthetic Complications: no major complications apparent
[2019-01-05] MEDS ORDERED: BISACODYL 10 MG SUPP PR PRN (16:53)
[2019-01-05] MEDS ORDERED: HYDROmorphone INJ 0.5 MG/0.5 ML SYR IV PRN (16:53)
[2019-01-05] MEDS ORDERED: ALUMINUM/MAGNESIUM SUSP 30 ML UDC PO PRN (16:53)
[2019-01-05] MEDS ORDERED: DO NOT ADMINISTER PNEUMOCOCCAL VACCINE PRN (16:53)
[2019-01-05] MEDS ORDERED: DO NOT ADMINISTER FLU VACCINE PRN (16:53)
[2019-01-05] MEDS ORDERED: FAMOTIDINE 20 MG TAB PO PRN (16:53)
[2019-01-05] MEDS ORDERED: LORazepam 0.5 MG/1 ML VIAL IV PRN (16:53)
[2019-01-05] MEDS ORDERED: SOD PHOSPHATE/SOD BIPHOSPHATE ENEMA 132 ML BTL PR PRN (16:53)
[2019-01-05] MEDS ORDERED: ACETAMINOPHEN 500 MG TAB PO PRN (16:53)
[2019-01-05] MEDS ORDERED: METOCLOPRAMIDE HCL INJ 5 MG/ML 2 ML VIAL IV PRN (16:53)
[2019-01-05] MEDS ORDERED: LORazepam 0.5 MG TAB PO PRN (16:53)
[2019-01-05] MEDS ORDERED: MAGNESIUM HYDROXIDE SUSP 30 ML UDC PO PRN (16:53)
[2019-01-05] MEDS ORDERED: ONDANSETRON 4 MG TAB PO PRN (16:53)
[2019-01-05] MEDS ORDERED: PROMETHAZINE HCL 12.5 MG in SODIUM CHLORIDE 0.9% 50 ML IV PRN (16:53)
[2019-01-05] MEDS ORDERED: ACETAMINOPHEN 1,000 MG/100 ML VIAL IV PRN (16:53)
[2019-01-05] MEDS: LACTATED RINGER'S 1,000 ML IV SCH ×2 (17:17→18:11)
[2019-01-05] MEDS: KETOROLAC 30 MG/ML VIAL IV SCH ×2 (18:44→23:54)
[2019-01-05] MEDS: DOCUSATE SODIUM/SENNA 50/8.6MG TAB PO SCH (21:29)
[2019-01-05] MEDS: CLINDAMYCIN 600 MG in DEXTROSE 5% 50 ML IV SCH (21:29)
[2019-01-06] MEDS: LACTATED RINGER'S 1,000 ML IV SCH (01:15)
[2019-01-06] MEDS: OXYCODONE HCL IR 5 MG TAB (IMMEDIATE RELEASE) PO PRN ×4 (03:34→20:32)
[2019-01-06] MEDS: CLINDAMYCIN 600 MG in DEXTROSE 5% 50 ML IV SCH (05:45)
[2019-01-06] MEDS: KETOROLAC 30 MG/ML VIAL IV SCH ×2 (05:45→12:30)
[2019-01-06] MEDS: POLYETHYLENE (MIRALAX) 17 GM PACK PO SCH ×3 (05:51→19:51)
[2019-01-06 07:08] LABS: Basophils # (auto) 0.01 K/uL (0-0.2); Basophils % (auto) 0.1 %; Hematocrit (blood only) 37.1 % (37-47); Hemoglobin 12.3 g/dL (12.0-16.0); Immature Granulocytes # (auto) 0.09 K/uL (0.00-0.02); Immature Granulocytes % (auto) 0.6 %; Lymphocytes # (auto) 1.83 K/uL (1.2-3.4); Lymphocytes % (auto) 13.1 %; Mean Corpuscular Hgb Conc 33.2 g/dL (32-36); Mean Corpuscular Volume 94.9 fL (80-100); Mean Platelet Volume 9.1 fL (7.4-10.4); Monocytes # (auto) 1.09 K/uL (0.11-0.59); Monocytes % (auto) 7.8 %; Neutrophils # (auto) 10.94 K/uL (1.4-6.5); Neutrophils % (auto) 78.4 %; Platelet Count 258 K/uL (130-400); RDW Coefficient of Variation 13.6 % (11.5-14.5); RDW Standard Deviation 46.9 fL (36.4-46.3); Red Blood Count 3.91 M/uL (4.2-5.4); White Blood Count 13.96 K/uL (4.8-10.8)
[2019-01-06 07:43] LABS: Creatinine Clr Calc Pharmacy 92.5 ml/min; Est GFR (African American) 94.7; Est GFR (Non-African American) 81.7
--- NOTE | 2019-01-06 08:29 | Anesthesiology Progress Note ---
Date of Service January 06, 2019 Anesthesia Post Procedure Vital Signs Vital Signs: Temp Pulse Pulse Resp BP BP Pulse Ox 01/06/19 08:07 37 C 62 16 112/76 95 01/06/19 03:30 36.7 C 71 16 108/69 97 01/05/19 23:25 36.8 C 81 16 103/66 96 01/05/19 18:35 36.8 C 73 14 112/73 96 01/05/19 17:41 36.6 C 73 16 100/66 96 01/05/19 17:05 36.9 C 57 L 16 112/63 97 01/05/19 16:35 37.0 C 64 14 102/68 96 01/05/19 16:10 36.6 C 61 14 96/63 L 96 01/05/19 16:00 36.6 C 67 14 104/64 96 01/05/19 15:50 67 17 102/58 L 97 01/05/19 15:40 62 17 101/60 97 01/05/19 15:30 62 17 101/60 100 01/05/19 15:20 79 13 100/58 L 100 01/05/19 15:10 83 20 94/48 L 100 01/05/19 15:02 36.6 C 76 16 98/42 L 100 01/05/19 12:50 36.8 C 86 20 121/71 94 01/05/19 11:18 36.9 C 77 16 119/74 95 Pain Intensity Back: Pain Intensity: 5 Notes Mental Status: alert / awake / arousable Patient Amnestic to Procedure: Yes Nausea / Vomiting: adequately controlled Pain: adequately controlled Airway Patency, RR, SpO2: stable & adequate BP & HR: stable & adequate Hydration State: stable & adequate Anesthetic Complications: no major complications apparent and Pt Satisfied with anesthetic care
[2019-01-06] MEDS: TRAMADOL HCL 50 MG TABLET PO PRN (10:12)
--- NOTE | 2019-01-06 13:18 | Orthopedic Progress Note ---
Date of Service January 06, 2019 Assessment & Plan (1) Lumbar disc herniation with radiculopathy: At this time we will continue physical therapy advance her bowel regimen to monitor her HARRISON output anticipate discharge home this weekend. Present on Admission?: Yes Subjective Patient's back pain is controlled leg symptoms are markedly improved. Physical Exam Vital Signs (Past 24 Hours): Last Vital Signs Temp 37 C 01/06/19 11:50 Pulse 78 01/06/19 11:50 Resp 16 01/06/19 11:50 BP 94/60 L 01/06/19 11:50 Pulse Ox 98 01/06/19 11:50 Physical Exam: On exam she is good strength testing. She appears comfortable.
[2019-01-06] MEDS: DOCUSATE SODIUM/SENNA 50/8.6MG TAB PO SCH (19:50)
[2019-01-07] MEDS: TRAMADOL HCL 50 MG TABLET PO PRN ×3 (00:17→23:26)
[2019-01-07] MEDS: OXYCODONE HCL IR 5 MG TAB (IMMEDIATE RELEASE) PO PRN ×3 (07:40→20:44)
--- NOTE | 2019-01-07 10:25 | Orthopedic Progress Note ---
Date of Service January 07, 2019 Assessment & Plan (1) Lumbar disc herniation with radiculopathy: At this time we will continue physical therapy monitor her HARRISON output. Anticipate discharge home tomorrow. Present on Admission?: Yes Subjective Back pain is controlled leg symptoms markedly improved. Physical Exam Vital Signs (Past 24 Hours): Last Vital Signs Temp 37.2 C 01/07/19 07:23 Pulse 76 01/07/19 07:23 Resp 16 01/07/19 07:23 BP 97/61 L 01/07/19 07:23 Pulse Ox 93 01/07/19 07:23 Physical Exam: On exam she has good strength testing ambulating halls.
[2019-01-07] MEDS: DOCUSATE SODIUM/SENNA 50/8.6MG TAB PO SCH (20:41)
[2019-01-08] MEDS: OXYCODONE HCL IR 5 MG TAB (IMMEDIATE RELEASE) PO PRN ×2 (07:49→14:00)
--- NOTE | 2019-01-09 08:06 | Discharge Summary ---
Date of Service January 18, 2019 Admission HPI Per Admitting Provider Cyndi presented to the ED POD #6 s/p laminectomy with a severe return of her syptoms radiatin gdown the left leg. They started the day prior to presentation to ER. She had complete resolution of radicular pain post op. MRI Lumbar spine was performed in ED and recurrent disc herniation was diagnosed. She was admitted to Dr. Mccoy's service an underwent TLIF the following day. She had a normal post operative course. Progressed in PT. Pain greatly improved post op. SHe was discharged home. Discharge Data Consultations 01/04/19 15:33 ED Decision to Admit Stat 01/05/19 16:53 Consult Case Management - Discharge Planning Routine Procedures Performed Operation Date: 01/05/19 13:25 Actual Procedures p L5-S1 Decompression and Fusion/Interbody Fusion, Use of Osetamp and Infuse. (Not Applicable) - Carlos Mccoy, DO
--- NOTE | 2019-01-09 08:09 | Discharge Summary ---
Date of Service January 18, 2019 Discharge Data Consultations 01/04/19 15:33 ED Decision to Admit Stat 01/05/19 16:53 Consult Case Management - Discharge Planning Routine Procedures Performed Operation Date: 01/05/19 13:25 Actual Procedures p L5-S1 Decompression and Fusion/Interbody Fusion, Use of Osetamp and Infuse. (Not Applicable) - Carlos Mccoy, DO
--- NOTE | 2019-01-17 14:16 | Discharge Summary ---
Date of Service January 17, 2019 Admission HPI Per Admitting Provider Cyndi presented to the ED POD #6 s/p laminectomy with a severe return of her syptoms radiatin gdown the left leg. They started the day prior to presentation to ER. She had complete resolution of radicular pain post op. MRI Lumbar spine was performed in ED and recurrent disc herniation was diagnosed. She was admitted to Dr. Mccoy's service an underwent TLIF the following day. She had a normal post operative course. Progressed in PT. Pain greatly improved post op. SHe was discharged home. Admission Exam (Per Admitting) Constitutional WD/WN, vitals as above Eyes normal visual florse by confrontation ENMT external ear and nose normal, oropharynx normal Respiratory normal respiratory effort Cardiovascular Rate/Rhythm: regular rate Extremities: normal capillary refill Gastrointestinal (Abdomen) Inspection/Auscultation: abdomen normal to inspection Musculoskeletal Spine: + straight leg raise positive Skin no rashes, warm and dry Neurologic patellar DTR's 2+ bilat, sensation intact Psychiatric A+Ox3, euthymic affect Eye Contact: good eye contact Discharge Data Consultations 01/04/19 15:33 ED Decision to Admit Stat 01/05/19 16:53 Consult Case Management - Discharge Planning Routine Procedures Performed Operation Date: 01/05/19 13:25 Actual Procedures p L5-S1 Decompression and Fusion/Interbody Fusion, Use of Osetamp and Infuse. (Not Applicable) - Carlos Mccoy, DO Hospital Course (1) Lumbar disc herniation with radiculopathy: At this time we will continue physical therapy monitor her HARRISON output. Anticipate discharge home tomorrow. per HPI uncomplicated post op course Discharge Instructions ACTIVITY RECOMMENDATIONS: SELF CARE INSTRUCTIONS AFTER THORACIC/LUMBAR FUSIONS 1. You may walk to your tolerance. It is good exercise for your legs and back. Expect some back and intermittent leg aches and pains. 2. You may perform "counter-top" level activities (make a sandwich, angela with a project, etc.). 3. No bending or lifting of more than 10 pounds or back twisting of any nature (roll like a log when turning in bed). 4. You may ride in a car for 20-30 minutes at a time. No driving until after your first visit with your doctor. 5. Frequent changes of position and restricting sitting to 30 minutes at a time will help limit the amount of back spasms and stiffness you may experience. 6. You may discontinue the use of ambulatory aids (cane, crutches, etc.) once your strength and confidence allow. 7. You may remote sensing technician the shower and let water strike your incision when you arrive home at least once daily. Do not take a tub bath, sit in a hot tub or go into a swimming pool until after your first recheck in the office. SPECIAL CARE INSTRUCTIONS: VERY IMPORTANT TO READ AND REVIEW A. Your surgical incision has been closed with a cosmetic suture under the skin that will dissolve in about 6 weeks. In 14 days, you can use a pair of clean scissors and cut the suture that is left outside of the skin at the ends of your incision. 1. The small skin tapes can be removed 7 days after surgery if they have not fallen off by that point. 2. You may keep the wound open to air as much as possible to promote healing after post-op day number 5 unless told otherwise by your doctor. 3. If you think the wound looks like it is becoming infected (redness or worsening drainage) and/or you are experiencing fever, chill or worsening back pain and muscle spasms, contact the office so that we may evaluate you as soon as possible. B. Complications are uncommon, but please contact us if you have any signs or symptoms of: 1. wound infection (fever higher than 102.5 degrees F, redness, separation of wound, drainage, or increasing pain from the incision) 2. blood clots in legs (pain, swelling, redness and warmth in legs) 3. urinary tract infection (fever higher than 102.5 degrees F, burning upon urination or increased frequency of urination) 4. nerve problems (inability to walk on your toes or heels, numbness, loss of bowel or bladder control) 5. any other symptoms that concern you C. Please call the office at if you have any concerns or questions about your operation or recovery. D. No smoking! Smoking drastically decreases the chance of a solid fusion. E. Do not take any anti-inflammatory medications (Indocin, Advil, Motrin, Aspirin, Naprosyn, etc.) as these may inhibit the chance of a solid fusion. Tylenol is okay to take for pain. MANAGING PAIN AFTER SPINAL SURGERY 1. Narcotic medication is intended for short-term use and will be provided for surgical pain. Surgical pain usually lasts for a period of 4-6 weeks. Narcotic medication includes Percocet, Vicodin, Darvocet, Tylenol #3 or Lortab. 2. Longer-term pain is more appropriately treated with non-narcotic medication such as Tylenol ES. 3. Muscle spasm is not appropriately treated with narcotics. Muscle relaxers such as Soma, Flexeril or Skelaxin can be used along with Tylenol ES. 4. Remember that we all live with some "aches and pains". This is not unusual or uncommon after an injury or as we get older. a. Back pain is expected and may include muscle spasms for 4 to 6 weeks after surgery. The pain should gradually improve. If the pain worsens for no apparent reason, please contact the office. b. Intermittent leg pain may also be experienced and should not be concerned about unless it worsens for no apparent reason. If so, please contact the office. 5. We will provide appropriate medication within the normal guidelines of their prescribed use. We will also be very cautious and aware of potential abuse and extended duration of patients' medication needs. a. Pain medications are for your comfort and to assist with sleep and rest so that the tissue can heal. They are not provided in order to return to normal activity and should not be used through the day. To do so or worsening pain at night can result from ongoing tissue damage and development of tolerance to the prescribed medicine. 6. Please allow 2-3 days to process refills. Prescriptions will not be mailed but must be picked up at the office. FOLLOW UP VISIT: Keep your scheduled follow-up appointment. Any questions, please call the office at . Supervising Physician Co-Signing Physician Notes Dr. Carlos Mccoy
== END 2019-01-08 14:17 | disposition home or self-care (01) | DRG 455 ==
LOC: ED 08:36 → 3N 08:36
DX: M51.16 Intervertebral disc disorders with radiculopathy, lumbar region; Z80.1 Family history of malignant neoplasm of trachea, bronchus and lung; Z90.49 Acquired absence of other specified parts of digestive tract; Z88.1 Allergy status to other antibiotic agents; Z68.33 Body mass index [BMI] 33.0-33.9, adult; E66.9 Obesity, unspecified; Z80.3 Family history of malignant neoplasm of breast; J45.909 Unspecified asthma, uncomplicated